=== PATIENT | female | born 1995 | race Caucasian/White ===

== ENCOUNTER 2020-06-21 16:20 | Emergency (ER) | payer OTHER ==
[2020-06-21 16:34] VITALS: BP 118/78; TEMP 98.2
--- NOTE | 2020-06-21 16:50 | ED ---
Lower Extremity Injury HPI - General Chief Complaint: Extremity Injury, Lower Stated Complaint: Dislocated knee Time Seen by Provider: 06/21/20 16:35 Source: patient Mode of arrival: ambulatory Limitations: no limitations - History of Present Illness Initial Comments: Patient is 25-year-old female with history of EDS presenting to the emergency department with a chief complaint of left knee pain. Patient states she does have hypermobility in her joints due to her connective tissue disorder. Patient states she has often dislocated her shoulder and knees. Patient reports she does have occasional patellar dislocation which typically comes back on its own. States that, patient was standing when she felt her left knee give out. Patient reports the patella was moved laterally when more than usual. Patient states this "did not look normal". States on the way to the emergency department the patella return back to its original position. Patient reports she does have some pain but still has almost full range of motion in the knee. Reports there is pain in the knee. States this occurred about one hour prior to arrival. - Related Data Allergies Allergy/AdvReac Type Severity Reaction Status Date / Time adhesive tape Allergy Unknown Verified 06/21/20 16:36 amoxicillin Allergy Unknown Verified 06/21/20 16:36 FD and C red no.40 Allergy Unknown Verified 06/21/20 16:36 gluten Allergy Unknown Verified 06/21/20 16:36 lithium Allergy Unknown Verified 06/21/20 16:36 loratadine [From Claritin] Allergy Unknown Verified 06/21/20 16:36 montelukast [From Singulair] Allergy Unknown Verified 06/21/20 16:36 omeprazole Allergy Unknown Verified 06/21/20 16:36 red dye Allergy Unknown Verified 06/21/20 16:36 Review of Systems ROS Statement: Those systems with pertinent positive or pertinent negative responses have been documented in the HPI. ROS Other: All systems not noted in ROS Statement are negative. Past Medical History Additional Past Medical History / Comment(s): cluster headache,. migraine medications. EDS- hypermobility issues-. asthma. chronic bronichitis. Hashimato. alopeca. artritis. celiac dx. gerd. Drug induced Lupus. History of Any Multi-Drug Resistant Organisms: None Reported Past Surgical History: Appendectomy Additional Past Surgical History / Comment(s): septal surgery Past Psychological History: Anxiety, Depression Smoking Status: Never smoker Past Alcohol Use History: None Reported Past Drug Use History: Marijuana General Exam Limitations: no limitations General appearance: alert, in no apparent distress, obese Head exam: Present: atraumatic, normocephalic Eye exam: Present: normal appearance, PERRL, EOMI Pupils: Present: normal accommodation ENT exam: Present: normal exam, normal oropharynx, mucous membranes moist, TM's normal bilaterally, normal external ear exam Neck exam: Present: normal inspection, full ROM. Absent: tenderness Respiratory exam: Present: normal lung sounds bilaterally. Absent: respiratory distress, wheezes Cardiovascular Exam: Present: regular rate, normal rhythm, normal heart sounds Extremities exam: Present: normal inspection (Patella appears to be in place.), full ROM, tenderness (Some tenderness along the lateral aspect of the left knee), normal capillary refill, other (+2 dorsalis pedis and posterior tibialis bilaterally. Sensation intact in bilateral lower extremity is.). Absent: pedal edema, joint swelling, calf tenderness Back exam: Present: normal inspection, full ROM. Absent: tenderness, CVA tenderness (R), CVA tenderness (L) Neurological exam: Present: alert, oriented X3 Psychiatric exam: Present: normal affect, normal mood Skin exam: Present: warm, dry, intact, normal color Course Vital Signs 06/21/20 06/21/20 16:29 17:58 Temperature 98.2 F Pulse Rate 110 H 96 Respiratory 20 18 Rate Blood Pressure 118/78 O2 Sat by Pulse 97 100 Oximetry Medical Decision Making - Medical Decision Making Patient is a 25-year-old female with history of ED is presenting to the emergency department with a chief complaint of left knee pain. There is a concern for possible dislocation of the left knee. On exam the patella that appear to be placed, however is excessive body habitus site was difficult to fully determine a dislocation based on physical exam. X-ray obtained shows no signs of dislocation or any other acute osseous abnormalities. Patient was given analgesia in the emergency department. She was also given Zofran because she became nauseous after the analgesia. Patient was discharged with a Tylenol 3 starter pack. She was advised not to drive or operate heavy machinery taking the medication. The negative side effects of narcotics were discussed with patient and proper disposal. Strict return parameters were thoroughly discussed with patient is understanding and agreeable. Case discussed with physician. Disposition Clinical Impression: Left knee pain Disposition: HOME SELF-CARE Condition: Stable Instructions (If sedation given, give patient instructions): Knee Sprain (ED) Additional Instructions: Follow with purchasing specialist. Return to emergency department if symptoms worsen. Is patient prescribed a controlled substance at d/c from ED?: No Referrals: Jamari Lopez DO [Primary Care Provider] - 1-2 days Time of Disposition: 17:56
[2020-06-21] MEDS ORDERED: MORPHINE SULFATE 4 MG/ML SYRINGE IM STA (17:00)
[2020-06-21] MEDS ORDERED: ONDANSETRON 4 MG/2 ML VIAL IM STA (17:24)
--- NOTE | 2020-06-21 17:52 | XR ---
EXAMINATION TYPE: XR knee complete LT DATE OF EXAM: 06/21/2020 COMPARISON: NONE HISTORY: Knee pain TECHNIQUE: 3 views FINDINGS: I see no fracture nor dislocation. Joint spaces are normal. There is no sign of knee joint effusion. IMPRESSION: Negative left knee exam. No fracture.
[2020-06-21 17:59] VITALS: PULSE 96; RESP 18
== END 2020-06-21 18:12 | disposition home or self-care (01) ==
LOC: EC 16:20
DX: M25.562 Pain in left knee (principal); R11.0 Nausea; Z88.0 Allergy status to penicillin; Z88.8 Allergy status to other drugs, medicaments and biological substances; Z91.041 Radiographic dye allergy status; Z91.048 Other nonmedicinal substance allergy status
CPT/HCPCS: 73562; 99283; 96372 ×2; J2270; J2405

== ENCOUNTER → 2025-03-02 | Outpatient (CLI) | payer OTHER ==
--- NOTE | 2025-03-02 16:23 | US ---
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 FINDINGS: GLAND SIZE: Right Lobe: 5.0 x 2.0 x 2.0 cm Overall Parenchyma: heterogeneous Left Lobe: 3.6 x 1.1 x 1.1 cm Overall Parenchyma: heterogeneous Isthmus Thickness: 0.2 cm Diffuse glandular hyperemia. NODULES RIGHT: # of nodules measured on right: 0 LEFT: # of nodules measured on left: 0 ISTHMUS: # of nodules measured in the isthmus: 0 Collections Analyst notes: Bilateral neck scanned, no evidence of lymphadenopathy, no abnormality visualized right lateral neck where pt feels palpable. Thyroid heterogeneous and hypervascular. IMPRESSION: 1. Heterogeneous and hyperemic thyroid gland. The right lobe is borderline enlarged. Findings may be seen with Rosetta's thyroiditis. No discrete nodules. 2. Additional targeted scanning lateral right neck at the patient directed palpable site. No discrete sonographic abnormality is seen here. [facility], , 03/02/2025 4:21 PM
== END | disposition home or self-care (01) ==
LOC: RADUSWWP 15:40
PROVIDERS: ATTEND Family Medicine
DX: R22.1 Localized swelling, mass and lump, neck (principal); E07.89 Other specified disorders of thyroid
CPT/HCPCS: 76536

== ENCOUNTER 2025-03-11 17:10 | Emergency (ER) | payer OTHER ==
--- NOTE | 2025-03-11 17:23 | ED ---
General Adult HPI - General Chief complaint: Allergic Reaction Stated complaint: Medication RXN Time Seen by Provider: 03/11/25 17:17 Source: patient, RN notes reviewed Mode of arrival: ambulatory Limitations: no limitations - History of Present Illness Initial comments: 29-year-old female with history of seasonal allergies presenting to the emergency department with concerns for a potential allergic reaction to Bactrim. Patient states that on 03/06/2025 she tripped over a a utility cord that was on the ground. Patient went to urgent care on 03/09/2025 where she was prescribed Bactrim prophylactically for concern of infection. Patient took first dose of Bactrim yesterday evening which she has never taken before and today feels like she is "on fire ". She denies difficulty breathing, tongue or lip swelling, urticaria. Patient chronically takes Benadryl for allergies and states that she took a dose today with minimal relief in symptoms. - Related Data Allergies Allergy/AdvReac Type Severity Reaction Status Date / Time adhesive tape Allergy Unknown Verified 03/11/25 17:15 amoxicillin Allergy Unknown Verified 03/11/25 17:15 FD and C red no.40 Allergy Unknown Verified 03/11/25 17:15 gluten Allergy Unknown Verified 03/11/25 17:15 lithium Allergy Unknown Verified 03/11/25 17:15 loratadine [From Claritin] Allergy Unknown Verified 03/11/25 17:15 montelukast [From Singulair] Allergy Unknown Verified 03/11/25 17:15 omeprazole Allergy Unknown Verified 03/11/25 17:15 red dye Allergy Unknown Verified 03/11/25 17:15 Review of Systems ROS Statement: Those systems with pertinent positive or pertinent negative responses have been documented in the HPI. ROS Other: All systems not noted in ROS Statement are negative. Past Medical History Additional Past Medical History / Comment(s): cluster headache,. migraine medications. EDS- hypermobility issues-. asthma. chronic bronichitis. Hashimato. alopeca. artritis. celiac dx. gerd. Drug induced Lupus. History of Any Multi-Drug Resistant Organisms: None Reported Past Surgical History: Appendectomy Additional Past Surgical History / Comment(s): septal surgery Past Psychological History: Anxiety, Depression Smoking Status: Never smoker Past Alcohol Use History: None Reported Past Drug Use History: Marijuana General Exam Limitations: no limitations General appearance: alert, in no apparent distress Eye exam: Present: normal appearance, PERRL, EOMI. Absent: scleral icterus, conjunctival injection, periorbital swelling ENT exam: Present: normal exam, mucous membranes moist Neck exam: Present: normal inspection. Absent: tenderness, meningismus, lymphadenopathy Respiratory exam: Present: normal lung sounds bilaterally. Absent: respiratory distress, wheezes, rales, rhonchi, stridor Cardiovascular Exam: Present: regular rate, normal rhythm, normal heart sounds. Absent: systolic murmur, diastolic murmur, rubs, gallop, clicks GI/Abdominal exam: Present: soft, normal bowel sounds. Absent: distended, tenderness, guarding, rebound, rigid Skin exam: Present: warm, dry, intact, normal color. Absent: rash Course Vital Signs 03/11/25 03/11/25 17:11 17:51 Temperature 98.4 F Pulse Rate 96 Respiratory 17 16 Rate Blood Pressure 135/93 O2 Sat by Pulse 100 Oximetry Medical Decision Making - Medical Decision Making Was pt. sent in by a medical professional or institution (Dr. PA, DIAL REFINISHER, urgent care, hospital, or [place] [facility]...) When possible be specific @ -No Did you speak to anyone other than the patient for history (EMS, parent, family, police, friend...)? What history was obtained from this source @ -No Did you review nursing and triage notes (agree or disagree)? Why? @ -I reviewed and agree with nursing and triage notes Were old charts reviewed (outside hosp., previous admission, EMS record, old EKG, old radiological studies, urgent care reports/EKG's, [place] [facility] records)? Report findings @ -No old charts were reviewed Differential Diagnosis (chest pain, altered mental status, abdominal pain women, abdominal pain men, vaginal bleeding, weakness, fever, dyspnea, syncope, headache, dizziness, GI bleed, back pain, seizure, CVA, palpatations, mental health, musculoskeletal)? @ -Anaphylaxis, angioedema, adverse drug reaction, drug eruption, this is not all-inclusive EKG interpreted by me (3pts min.). @ -None X-rays interpreted by me (1pt min.). @ -None done CT interpreted by me (1pt min.). @ -None done U/S interpreted by me (1pt. min.). @ -None done What testing was considered but not performed or refused? (CT, X-rays, U/S, labs)? Why? @ -None What meds were considered but not given or refused? Why? @ -None Did you discuss the management of the patient with other professionals (professionals i.e. , PA, DIAL REFINISHER, lab, RT, psych nurse, medical social worker, radio machinist, teacher, svp chief marketing officer, bilingual case manager)? Give summary @ -No Was smoking cessation discussed for >3mins.? @ -No Was critical care preformed (if so, how long)? @ -No Were there social determinants of health that impacted care today? How? (Homelessness, low income, unemployed, alcoholism, drug addiction, transportation, low edu. Level, literacy, decrease access to med. care, [place] [facility], rehab)? @ -No Was there de-escalation of care discussed even if they declined (Discuss DNR or withdrawal of care, Hospice)? DNR status @ -No What co-morbidities impacted this encounter? (DM, HTN, Smoking, COPD, CAD, Cancer, CVA, ARF, Chemo, Hep., AIDS, mental health diagnosis, sleep apnea, morbid obesity)? @ -None Was patient admitted / discharged? Hospital course, mention meds given and route, prescriptions, significant lab abnormalities, going to OR and other pertinent info. @ -Discharge. 29-year-old female present emergency room with concerns for adverse drug reaction to Bactrim. Overall patient is well-appearing in no signs of respiratory distress. There is no signs of tongue, lip swelling, urticaria/hives. Patient provided with dose of hydroxyzine and Solu-Medrol. Recommend the patient discontinue use of Bactrim. Patient stable for discharge. Case discussed with Dr. cisneros Undiagnosed new problem with uncertain prognosis? @ -No Drug Therapy requiring intensive monitoring for toxicity (Heparin, Nitro, Insulin, Cardizem)? @ -No Were any procedures done? @ -No Diagnosis/symptom? @ -Adverse drug reaction to Bactrim Acute, or Chronic, or Acute on Chronic? @ -Acute Uncomplicated (without systemic symptoms) or Complicated (systemic symptoms)? @ -Uncomplicated Side effects of treatment? @ -No Exacerbation, Progression, or Severe Exacerbation? @ -No Poses a threat to life or bodily function? How? (Chest pain, [place], [place], pneumonia, PE, COPD, DKA, ARF, appy, cholecystitis, CVA, Diverticulitis, Homicidal, Suicidal, threat to staff... and all critical care pts) @ -No Disposition Clinical Impression: Adverse reaction to antibiotic Disposition: HOME SELF-CARE Condition: Stable Additional Instructions: Please return to the Emergency Department if symptoms worsen or any other concerns. Is patient prescribed a controlled substance at d/c from ED?: No Referrals: Nonstaff,Physician [Primary Care Provider] - 1-2 days Time of Disposition: 17:57
[2025-03-11] MEDS: hydrOXYzine HCL 25 MG TAB PO STA (17:47)
[2025-03-11] MEDS: methylPREDNISolone SOD SUCCI 125 MG/2 ML VIAL IM ONE (17:49)
[2025-03-11 18:26] VITALS: BP 125/85; PULSE 90; RESP 18; TEMP 98
== END 2025-03-11 18:19 | disposition home or self-care (01) ==
LOC: EC 17:10
DX: T78.40XA Allergy, unspecified, initial encounter (principal); T36.8X5A Adverse effect of other systemic antibiotics, initial encounter; Z88.0 Allergy status to penicillin; Z91.09 Other allergy status, other than to drugs and biological substances; Z88.8 Allergy status to other drugs, medicaments and biological substances; Z91.041 Radiographic dye allergy status
CPT/HCPCS: 99283; 96372; J2919